=== PATIENT | female | born 1955 | race Caucasian/White ===

== ENCOUNTER 2017-09-05 03:08 | Observation (INO) | payer OTHER ==
[2017-09-05 03:39] VITALS: BMI 29.7
[2017-09-05] MEDS ORDERED: ASPIRIN 325 MG TABLET PO ONE (03:44)
[2017-09-05] MEDS ORDERED: ASPIRIN 325 MG TABLET ONE (03:54)
[2017-09-05 04:16] LABS: BASO % 0.7 % (0-2.0); EOS % 1.4 % (0-4.5); HEMATOCRIT 35.6 % (32.4-45.2); HEMOGLOBIN 11.9 GM/dL (10.7-15.3); LYMPH % 38.2 % (8-40); MCH 28.8 pg (25.7-33.7); MCHC 33.5 g/dl (32.0-36.0); MEAN PLT VOLUME 8.4 fl (7.5-11.1); MONO % 8.9 % (3.8-10.2); NEUT % 50.8 % (42.8-82.8); PLATELET COUNT 317 K/MM3 (134-434); RBC 4.14 M/mm3 (3.60-5.2); RDW 13.7 % (11.6-15.6); WHITE BLOOD COUNT 5.8 K/mm3 (4.0-10.0)
[2017-09-05 04:29] LABS: INR 0.91 (0.82-1.09); PROTHROMBIN TIME (PATIENT) 10.3 SEC (9.7-13.0)
[2017-09-05 04:36] LABS: ALBUMIN 3.3 g/dl (3.4-5.0); ANION GAP 9 (8-16); BILIRUBIN,TOTAL 0.4 mg/dL (0.2-1.0); BLOOD UREA NITROGEN 11 mg/dL (7-18); CALCIUM 9.2 mg/dL (8.5-10.1); CHLORIDE 106 mmol/L (98-107); CO2 28 mmol/L (21-32); CREATININE 0.8 mg/dL (0.55-1.02); GLUCOSE,RANDOM 100 mg/dL (74-106); MAGNESIUM 1.8 mg/dL (1.8-2.4); POTASSIUM 3.8 mmol/L (3.5-5.1); SGOT/AST 18 U/L (15-37); SGPT/ALT 28 U/L (12-78); SODIUM 143 mmol/L (136-145); TOT PROT 6.9 g/dl (6.4-8.2)
[2017-09-05 04:38] LABS: ALK PHOS 81 U/L (45-117)
[2017-09-05] MEDS ORDERED: diphenhydrAMINE HCL 25 MG CAPSULE (FP) PO ONE ×2 (06:22→06:53)
[2017-09-05] MEDS ORDERED: NITROGLYCERIN SUBLINGUAL 1/200 0.3 MG BTL SL ONE (06:22)
--- NOTE | 2017-09-05 06:46 | PDOC ---
Attending Attestation - Resident Resident Name: Olivia Mg - ED Attending Attestation I have performed the following: I have examined & evaluated the patient, The case was reviewed & discussed with the resident, I agree w/resident's findings & plan, Exceptions are as noted - HPI HPI: 09/05/17 07:33 Adal 62 YOF w/ significant pmhx pericardial effusion/pericarditis, HTN, HLD , diabetes, chronic UTI's who presents to the ED with complaints of mid chest pain that began 3am this morning. Patient's daughter is at bedside translating , reporting patient began to experiencing chest ain't that is described as a pressured pain as well as associated symptoms of full body itchiness. She reports itchiness is more prominent on the right side, that gradually increased in intensity over time, prompting her to come into the ED for further evaluation. Denies nausea, vomiting Denies contact with sick individuals, out of state travelling. Denies fevers,chills. Denies any other symptoms. no headache or dizziness, weakness or paresthesias Allergies: None Social history: No smoking. No alcohol. No illicit drugs. Surgical history: Appendectomy,Pericarditis, Cholecystectomy PMD: Dr. Hodge - Physicial Exam PE: 09/05/17 07:32 General: Well appearing, awake and alert, NAD. HEENT: NCAT, PERRL, EOMI, clear conjunctiva, anicteric, moist mucus membranes, clear oropharynx Neck: neck supple, FROM, no JVD, +lateral neck scar Chest: no chest wall tenderness Lungs: CTAB, normal and even respirations, no respiratory distress Heart: RRR, no murmurs, 2+ peripheral pulses throughout, no peripheral edema Abdomen: soft, NTND, no peritoneal signs. Back: nontender, normal inspection and ROM MSK: no edema, NAGEL x4, ROM intact. normal bulk and tone. Neuro: alert, oriented appropriately; no focal neurologic deficits. Skin: warm and well perfused, cap refill <2 sec, normal color - Medical Decision Making 09/05/17 06:43 MDM: Adal 62 YOF w/ significant pmhx pericardial effusion, HTN, HLD, diabetes, chronic UTI's presenting with anterior chest pressure since 3am. + itching on right side of body. Neg Cath and stress 2 years ago. Denies stressors or respiratory/cardiac illnesses. DDx includes ACS, angina, chest pain NOS, costochondritis, GERD, pleurisy, anxiety, esophageal spasm. Low suspicion for pulmonary embolism or dissection. considered pericardial effusion with cardiomegaly on cxr, but no evidence of pericarditis on EKG Chest pain Heart score; vital signs wnl, stable. HEART score 4 which denotes moderate risk of ACS 12-16% MACE at 30 days. Given risk factors including several comorbidities and age EKG sinus rhythm at 51, TWI in anterior leads; flattening in III, no segment derangements, normal intervals. Initial trop neg x1, reassuring but not ruled out with serials and monitoring and possibly provocative testing. Admit to tele/medicine r/o ischemia/ACS, serial trops and EKG/tele monitoring. ASA administered, pain controlled with nitro (CP 4/10), discussion with patient and family at bedside, questions answered. Delinquent Tax Collector Assistant - [facility] , call out made. 09/05/17 07:33 Heart Score/ECG Review - History History: Moderately suspicious - Electrocardiogram EKG: Normal - Age Age: 45-65 - Risk Factors Risk Factors Heart Score: Yes Hx Hypercholesterolemia, Yes Hx Hypertension, Yes Hx Diabetes Based on the list above the patient has:: >/=3 risk factors or Hx atherosclerotic disease - Troponin Troponin: </= normal limit - Score Heart Score - Total: 4
--- NOTE | 2017-09-05 07:18 | PDOC ---
History of Present Illness - General Chief Complaint: Chest Pain Stated Complaint: CHEST PAIN Time Seen by Provider: 09/05/17 04:24 - History of Present Illness Initial Comments: 62 year old female with PMH of HTN, HLD, NIDDM, pericarditis (most recent episode 7 months prior, treated in [facility]) and previous pericardial window for pericardial effusion presenting with chest pain, bilateral leg itching, and bilateral . Describes the chest pain as left sided pressure, non-radiating, non- exertional, and occasionally pleuritic. It did not wake her up out of her sleep but she noticed it when she work up at 4:00 AM this morning. Denies nausea, vomiting, SOB, headache, LOC, lightheadedness, or other symptoms. 09/05/17 07:17 Past History - Past Medical History Allergies/Adverse Reactions: Allergies Allergy/AdvReac Type Severity Reaction Status Date / Time No Known Allergies Allergy Verified 09/05/17 03:40 Home Medications: Ambulatory Orders Aspirin [ASA -] 81 mg PO DAILY 09/11/15 Escitalopram Oxalate [Lexapro -] 20 mg PO DAILY 09/11/15 Hydrochlorothiazide [Hctz -] 12.5 mg PO DAILY 09/11/15 Levothyroxine [Synthroid -] 100 mcg PO DAILY 09/11/15 Loperamide HCl [Imodium -] 2 mg PO BID #14 capsule 09/11/15 Losartan/Hydrochlorothiazide [Losartan-Hctz 50-12.5 mg Tab] 1 each PO DAILY Metformin HCl [Metformin HCl ER] 500 mg PO DAILY 09/11/15 Ondansetron [Zofran Odt -] 4 mg SL TID #21 od.tablet 09/11/15 Rabeprazole Sodium 20 mg PO DAILY 09/11/15 Simvastatin 20 mg PO BID 09/11/15 clonazePAM [Klonopin -] 1 mg PO BID 09/11/15 Cardiac Disorders: Yes (PERICARDIAL EFFUSION) COPD: No Diabetes: Yes Disorders: Yes (CHRONIC UTI'S) HTN: Yes Hypercholesterolemia: Yes Kidney Stones: Yes (W/SURGERY) Thyroid Disease: Yes - Surgical History Appendectomy: Yes Cardiac Surgery: Yes (PERICARDITIS/EFFUSION) Cholecystectomy: Yes - Immunization History Immunization Up to Date: No - Suicide/Smoking/Psychosocial Hx Smoking Status: No Smoking History: Never smoked Have you smoked in the past 12 months: No Number of Cigarettes Smoked Daily: 0 Information on smoking cessation initiated: No Hx Alcohol Use: No Drug/Substance Use Hx: No Substance Use Type: None Hx Substance Use Treatment: No Review of Systems - Review of Systems Constitutional: No: Chills, Diaphoresis HEENTM: No: Eye Pain, Blurred Vision Respiratory: No: Cough, Orthopnea, Shortness of Breath, SOB with Exertion Cardiac (ROS): Yes: Chest Pain. No: Edema, Lightheadedness, Palpitations ABD/GI: No: Diarrhea, Nausea, Vomiting : No: Burning, Dysuria Musculoskeletal: No: Back Pain, Gout Integumentary: No: Bruising, Erythema, Lesions, Lumps Neurological: Yes: Paresthesia, Tingling. No: Headache, Numbness, Weakness *Physical Exam - Vital Signs Last Vital Signs Temp Pulse Resp BP Pulse Ox 98.1 F 86 18 121/79 97 09/05/17 06:04 09/05/17 06:04 09/05/17 06:04 09/05/17 06:04 09/05/17 06:04 ED Treatment Course - LABORATORY CBC & Chemistry Diagram: 09/05/17 03:27 09/05/17 03:27 - ADDITIONAL ORDERS Additional order review: Laboratory Results 09/05/17 09/05/17 03:27 03:27 PT with INR 10.30 INR 0.91 Sodium 143 Potassium 3.8 Chloride 106 Carbon Dioxide 28 Anion Gap 9 BUN 11 Creatinine 0.8 Creat Clearance w eGFR > 60 Random Glucose 100 Calcium 9.2 Magnesium 1.8 Total Bilirubin 0.4 AST 18 ALT 28 Alkaline Phosphatase 81 Troponin I < 0.02 Total Protein 6.9 Albumin 3.3 L 09/05/17 03:27 RBC 4.14 MCV 86.0 MCHC 33.5 RDW 13.7 D MPV 8.4 Neutrophils % 50.8 Lymphocytes % 38.2 Monocytes % 8.9 Eosinophils % 1.4 Basophils % 0.7 - Medications Given in the ED: ED Medications Discontinued Medications Generic Name Dose Route Start Last Admin Trade Name Freq PRN Reason Stop Dose Admin Aspirin 325 mg 09/05/17 03:44 09/05/17 04:03 Asa - PO 09/05/17 03:45 325 mg ONCE ONE Administration Diphenhydramine HCl 25 mg 09/05/17 06:22 09/05/17 06:57 Benadryl - PO 09/05/17 06:23 25 mg ONCE ONE Administration Nitroglycerin 0.3 mg 09/05/17 06:22 09/05/17 06:57 Nitrostat - SL 09/05/17 06:23 0.3 mg ONCE ONE Administration Medical Decision Making - Medical Decision Making 62 year old female with multiple risk factors and heart score of 4 who will be admitted for chest pain with ACS rule out. EKG WNl and first troponin negative. Patient signed out to Dr. Walton of medical team. *DC/Admit/Observation/Transfer Diagnosis at time of Disposition: Chest pain Qualifiers: Chest pain type: unspecified Qualified Code(s): R07.9 - Chest pain, unspecified - Discharge Dispostion Disposition: AGAINST MEDICAL ADVICE Condition at time of disposition: Fair Decision to Admit order Date/Time: Decision to Admit Order Category Date Time Status Decision to Admit to Hospital Routine Admission 09/05/17 06:23 Active - Referrals - Patient Instructions - Post Discharge Activity
--- NOTE | 2017-09-05 07:45 | HP ---
CHIEF COMPLAINT: chest pain PCP: Dr. Hodge HISTORY OF PRESENT ILLNESS: 62 year old female without significant pmhx pericardial effusion/pericarditis, HTN, HLD, diabetes, chronic UTI's who presented to the ED with complaints of non -radiating, anterior chest pressure since 2am last night. Denies any inciting factors. Also reports itching over her entire body that began at 3am. Denies any nausea, vomiting, abdominal pain, shortness of breath, headache. Patient's daughter is translating at bedside and reports that patient has cardiac workup frequently with echos every 6 months with her outpatient literacy coach. She reports having ER course was notable for: (1) trop negative (2) ekg TWI lead anterior leads and inversion in lead III (3) Recent Travel: none PAST MEDICAL HISTORY: pericardial effusion/pericarditis, HTN, HLD, diabetes, chronic UTI's PAST SURGICAL HISTORY: Appendectomy Pericarditis Cholecystectomy Social History: Smoking: former smoker Alcohol: denies alcohol Drugs: drugs Family History: Acute MIs in both parents Allergies No Known Allergies Allergy (Verified 09/05/17 03:40) HOME MEDICATIONS: Home Medications Medication Instructions Recorded Aspirin [ASA -] 81 mg PO DAILY 09/11/15 Escitalopram Oxalate [Lexapro -] 20 mg PO DAILY 09/11/15 Hydrochlorothiazide [Hctz -] 12.5 mg PO DAILY 09/11/15 Levothyroxine [Synthroid -] 100 mcg PO DAILY 09/11/15 Loperamide HCl [Imodium -] 2 mg PO BID #14 capsule 09/11/15 Losartan/Hydrochlorothiazide 1 each PO DAILY 09/11/15 [Losartan-Hctz 50-12.5 mg Tab] Metformin HCl [Metformin HCl ER] 500 mg PO DAILY 09/11/15 Ondansetron [Zofran Odt -] 4 mg SL TID #21 od.tablet 09/11/15 Rabeprazole Sodium 20 mg PO DAILY 09/11/15 Simvastatin 20 mg PO BID 09/11/15 clonazePAM [Klonopin -] 1 mg PO BID 09/11/15 REVIEW OF SYSTEMS CONSTITUTIONAL: Absent: fever, chills, diaphoresis, generalized weakness, malaise, loss of appetite, weight change HEENT: Absent: rhinorrhea, nasal congestion, throat pain, throat swelling, difficulty swallowing, mouth swelling, ear pain, eye pain, visual changes CARDIOVASCULAR: chest pain Absent: syncope, palpitations, irregular heart rate, lightheadedness, peripheral edema RESPIRATORY: Absent: cough, shortness of breath, dyspnea with exertion, orthopnea, wheezing, stridor, hemoptysis GASTROINTESTINAL: Absent: abdominal pain, abdominal distension, nausea, vomiting, diarrhea, constipation, melena, hematochezia GENITOURINARY: Absent: dysuria, frequency, urgency, hesitancy, hematuria, flank pain, genital pain MUSCULOSKELETAL: Absent: myalgia, arthralgia, joint swelling, back pain, neck pain SKIN: Absent: rash, itching, pallor HEMATOLOGIC/IMMUNOLOGIC: Absent: easy bleeding, easy bruising, lymphadenopathy, frequent infections ENDOCRINE: Absent: unexplained weight gain, unexplained weight loss, heat intolerance, cold intolerance NEUROLOGIC: Absent: headache, focal weakness or paresthesias, dizziness, unsteady gait, seizure, mental status changes, bladder or bowel incontinence PSYCHIATRIC: Absent: anxiety, depression, suicidal or homicidal ideation, hallucinations. PHYSICAL EXAMINATION Vital Signs - 24 hr 09/05/17 09/05/17 03:10 06:04 Temperature 98.4 F 98.1 F Pulse Rate 51 L Pulse Rate [ 86 Left Apical] Respiratory 18 18 Rate Blood Pressure 156/64 Blood Pressure 121/79 [Right Arm] O2 Sat by Pulse 98 97 Oximetry (%) GENERAL: A&Ox3, no acute distress EYES: PERRLA, EOMI ENT: Moist mucus membranes NECK: No JVD LUNGS: CTA, no wheezes HEART: bradycardic, no murmurs ABDOMEN: Obese, soft, nontender, BS present MUSCULOSKELETAL: No CVA Tenderness EXTREMITIES: 2+ pulses, no edema. NEUROLOGICAL: Cranial nerves II-XII intact. Laboratory Results - last 24 hr 09/05/17 09/05/17 09/05/17 03:27 03:27 03:27 WBC 5.8 RBC 4.14 Hgb 11.9 Hct 35.6 MCV 86.0 MCH 28.8 MCHC 33.5 RDW 13.7 D Plt Count 317 MPV 8.4 Absolute Neuts (auto) 3.0 Neutrophils % 50.8 Lymphocytes % 38.2 Monocytes % 8.9 Eosinophils % 1.4 Basophils % 0.7 Nucleated RBC % 0 PT with INR 10.30 INR 0.91 Sodium 143 Potassium 3.8 Chloride 106 Carbon Dioxide 28 Anion Gap 9 BUN 11 Creatinine 0.8 Creat Clearance w eGFR > 60 Random Glucose 100 Calcium 9.2 Magnesium 1.8 Total Bilirubin 0.4 AST 18 ALT 28 Alkaline Phosphatase 81 Troponin I < 0.02 Total Protein 6.9 Albumin 3.3 L ASSESSMENT/PLAN: 62 year old female with hx pericardial effusion/pericarditis, HTN, HLD, diabetes , hypothyroidism, chronic UTI's presents for chest pressure and admitted tele obs for r/o acs #Chest Pressure: r/o ACS -initial troponin negative, repeat at 9am -EKG Sinus bradycardia with TWI in anterior lead and T wave flattening in III -repeat EKG -ASA 325 given in ED, continue home dose of 81mg -patient is on simvastatin at home, will put on high intensity statin given cardiac hx and recurrent symptoms (atovastatin 40mg) -echo ordered, due to hx of pericarditis w/ pericardial window - would like to assess structural components of the heart -Dr. Arreguin consult appreciated -cardiac monitoring now -TSH and lipid panel ordered #Hypertension -continue losartan/hydrochlorothiazide #Hyperlipidemia -change simvastatin to atorvastatin 40mg, give a dose now and then HS #Hypothyroidism: -continue synthroid 100mcg PO QD #Diabetes Mellitus -continue metformin 500 daily #Depression/Anxiety: not an acute issue -continue lexapro #FEN -no standing fluids -low NA/diabetic diet -lytes within normal limits, replete as necessary in AM #Prophylaxis -heparin 5000 subq TID #Disposition -admit tele obs Visit type - Emergency Visit Emergency Visit: Yes Care time: The patient presented to the Emergency Department on the above date and was hospitalized for further evaluation of their emergent condition. - New Patient This patient is new to me today: Yes Date on this admission: 09/05/17 - Critical Care Critical Care patient: No Hospitalist Screening - Colonoscopy Questionnaire Colonoscopy Questionnaire: Colonoscopy Questionnaire - Patient: 50 - 75 years old and never had a screening colonoscopy: Unknown History of colon or rectal polyps, or CA: Unknown History of IBD, Crohn's disease or UC: Unknown History of abdominal radiation therapy as a child: Unknown - Relative: 1 with colon or rectal CA, or polyps at age 60 or younger: Unknown Colon or rectal CA diagnosed at age 45 or younger: Unknown Multiple relatives with colon or rectal CA: Unknown - Outcome: Screening Result: Negative Screen
[2017-09-05] MEDS ORDERED: PATIENT'S OWN MEDICATION (NON-FORMULARY) (Simvastatin [Simvastatin] 20 MG) PO SCH (10:00)
[2017-09-05] MEDS ORDERED: LOPERAMIDE HCL 2 MG CAPSULE PO SCH (10:00)
[2017-09-05] MEDS ORDERED: PATIENT'S OWN MEDICATION (NON-FORMULARY) (Rabeprazole Sodium [Rabeprazole Sodium] 20 MG) PO SCH (10:00)
[2017-09-05] MEDS ORDERED: ATORVASTATIN CA 40 MG TABLET (FP) PO SCH (10:00)
[2017-09-05] MEDS ORDERED: HYDROCHLOROTHIAZIDE 12.5 MG CAPSULE (FP) PO SCH (10:00)
[2017-09-05] MEDS ORDERED: LOSARTAN 50MG/HCTZ 12.5MG 1 TAB (FP) PO SCH (10:00)
[2017-09-05] MEDS ORDERED: ASPIRIN 81 MG CHEWABLE TABLETS PO SCH (10:00)
[2017-09-05] MEDS ORDERED: PATIENT'S OWN MEDICATION (NON-FORMULARY) (Metformin Hcl [Metformin Hcl Er] 500 MG) PO SCH (10:00)
[2017-09-05] MEDS ORDERED: ESCITALOPRAM OXALATE 20 MG TABLET (FP) PO SCH (10:00)
[2017-09-05] MEDS ORDERED: clonazePAM 0.5 MG TABLET PO SCH (10:00)
[2017-09-05] MEDS ORDERED: LEVOTHYROXINE NA 100 MCG TABLET (FP) PO SCH (10:00)
[2017-09-05] MEDS: HEPARIN NA (PORCINE) 5,000 UNITS/ML 1ML VIAL SQ SCH ×2 (10:36→18:01)
[2017-09-05] MEDS ORDERED: clonazePAM 0.5 MG TABLET ONE (10:39)
[2017-09-05] MEDS ORDERED: PANTOPRAZOLE 40 MG TABLET (FP) PO SCH (10:46)
--- NOTE | 2017-09-05 12:20 | CONSULT ---
Consult Consult Specialty:: Cardiology (Dr Arreguin) Referred by:: Medicine Reason for Consultation:: Chest pain - History of Present Illness Chief Complaint: Chest pain History of Present Illness: 62 yo female H/o HTN, HPL and DM Provides history of pericarditis "years ago" Followed by Cardiology at [facility] ( unknown name) Now presents with severe chest pain that awoke her at 3AM Pain described as a pressure/tightness and has been present since last night Similar pain to her prior pericarditis presentation Does not take chronic antinflammatory therapy - History Source History Provided By: Patient (Via ecommerce analyst) Limitations to Obtaining History: Poor Historian - Past Medical History Cardio/Vascular: Yes: HTN Endocrine: Yes: Diabetes Mellitus - Alcohol/Substance Use Hx Alcohol Use: No - Smoking History Smoking history: Never smoked Have you smoked in the past 12 months: No Aproximately how many cigarettes per day: 0 Home Medications - Allergies Allergies/Adverse Reactions: Allergies Allergy/AdvReac Type Severity Reaction Status Date / Time No Known Allergies Allergy Verified 09/05/17 03:40 - Home Medications Home Medications: Ambulatory Orders Aspirin [ASA -] 81 mg PO DAILY 09/11/15 Escitalopram Oxalate [Lexapro -] 20 mg PO DAILY 09/11/15 Hydrochlorothiazide [Hctz -] 12.5 mg PO DAILY 09/11/15 Levothyroxine [Synthroid -] 100 mcg PO DAILY 09/11/15 Loperamide HCl [Imodium -] 2 mg PO BID #14 capsule 09/11/15 Losartan/Hydrochlorothiazide [Losartan-Hctz 50-12.5 mg Tab] 1 each PO DAILY Metformin HCl [Metformin HCl ER] 500 mg PO DAILY 09/11/15 Ondansetron [Zofran Odt -] 4 mg SL TID #21 od.tablet 09/11/15 Rabeprazole Sodium 20 mg PO DAILY 09/11/15 Simvastatin 20 mg PO BID 09/11/15 clonazePAM [Klonopin -] 1 mg PO BID 09/11/15 Family Disease History - Family Disease History Family History: Unremarkable Review of Systems - Review of Systems Constitutional: reports: No Symptoms Eyes: reports: No Symptoms HENT: reports: No Symptoms Neck: reports: No Symptoms Cardiovascular: reports: Chest Pain Respiratory: reports: No Symptoms Gastrointestinal: reports: No Symptoms Genitourinary: reports: No Symptoms Physical Exam Vital Signs: Vital Signs Temperature 98.0 F 09/05/17 10:31 Pulse Rate 58 L 09/05/17 10:31 Respiratory Rate 16 09/05/17 10:31 Blood Pressure 110/64 09/05/17 10:31 O2 Sat by Pulse Oximetry (%) 96 09/05/17 10:03 Constitutional: Yes: Well Nourished, No Distress, Calm Eyes: Yes: WNL HENT: Yes: WNL Neck: Yes: WNL Cardiovascular: Yes: WNL, Regular Rate and Rhythm (No rub) Respiratory: Yes: CTA Bilaterally Gastrointestinal: Yes: WNL Musculoskeletal: Yes: WNL Extremities: Yes: WNL Edema: No Labs: CBC, BMP 09/05/17 03:27 09/05/17 03:27 Imaging - Results EKG: Image Reviewed (09/05/17 at 03:43 SB at 41/min with LVH and TWI V1-V3.) Assessment/Plan 62 yo female with HTN, HPL, DM and prior episode of pericarditis now with recurrent chest pain 1) Chest pain -Suspect recurrent pericarditis -Will check hsCRP and ESR -ECG with T-wave inversion in V1-V3 and LVH. Could consider ischemic eval if not responsive to NSAIDS -Echo in AM to assess for pericardial effusion and pericardial thickening -Will give Ibuprofen 800mg PO now and assess response before putting on standing NSAIDS given her h/o gastritis. Will need PPI if goes on standing NSAIDS/[place]. 2) HTN -Well controlled -Continue Losartan/HCTZ 100/12.5 3) HPL -Continue Simva 20 4) DM -Continue Metformin.
[2017-09-05] MEDS ORDERED: IBUPROFEN 400 MG TABLET (FP) PO ONE (12:23)
--- NOTE | 2017-09-05 13:12 | PN ---
Teaching Attending Note Name of Resident: Juan Carlos Borges ATTENDING PHYSICIAN STATEMENT I saw and evaluated the patient. I reviewed the resident's note and discussed the case with the resident. I agree with the resident's findings and plan as documented. SUBJECTIVE: OBJECTIVE: Vital Signs Temperature 98.0 F 09/05/17 10:31 Pulse Rate 58 L 09/05/17 10:31 Respiratory Rate 16 09/05/17 10:31 Blood Pressure 110/64 09/05/17 10:31 O2 Sat by Pulse Oximetry (%) 96 09/05/17 10:03 GENERAL: A&Ox3, no acute distress EYES: PERRLA, EOMI, ENT: MMM NECK: No JVD LUNGS: CTA, no wheezes HEART: bradycardic, no murmurs ABDOMEN: Obese, soft, nontender, BS present EXTREMITIES: 2+ pulses, no edema. NEUROLOGICAL: Cranial nerves II-XII intact. WBC 5.8 K/mm3 (4.0-10.0) 09/05/17 03:27 RBC 4.14 M/mm3 (3.60-5.2) 09/05/17 03:27 Hgb 11.9 GM/dL (10.7-15.3) 09/05/17 03:27 Hct 35.6 % (32.4-45.2) 09/05/17 03:27 MCV 86.0 fl (80-96) 09/05/17 03:27 MCHC 33.5 g/dl (32.0-36.0) 09/05/17 03:27 RDW 13.7 % (11.6-15.6) D 09/05/17 03:27 Plt Count 317 K/MM3 (134-434) 09/05/17 03:27 MPV 8.4 fl (7.5-11.1) 09/05/17 03:27 CMP Sodium 143 mmol/L (136-145) 09/05/17 03:27 Potassium 3.8 mmol/L (3.5-5.1) 09/05/17 03:27 Chloride 106 mmol/L (98-107) 09/05/17 03:27 Carbon Dioxide 28 mmol/L (21-32) 09/05/17 03:27 Anion Gap 9 (8-16) 09/05/17 03:27 BUN 11 mg/dL (7-18) 09/05/17 03:27 Creatinine 0.8 mg/dL (0.55-1.02) 09/05/17 03:27 Creat Clearance w eGFR > 60 (>60) 09/05/17 03:27 Random Glucose 100 mg/dL (74-106) 09/05/17 03:27 Calcium 9.2 mg/dL (8.5-10.1) 09/05/17 03:27 Total Bilirubin 0.4 mg/dL (0.2-1.0) 09/05/17 03:27 AST 18 U/L (15-37) 09/05/17 03:27 ALT 28 U/L (12-78) 09/05/17 03:27 Alkaline Phosphatase 81 U/L (45-117) 09/05/17 03:27 Total Protein 6.9 g/dl (6.4-8.2) 09/05/17 03:27 Albumin 3.3 g/dl (3.4-5.0) L 09/05/17 03:27 CARDIAC ENZYMES Troponin I < 0.02 ng/ml (0.00-0.05) 09/05/17 09:20 Current Medications Generic Name Dose Route Start Last Admin Trade Name Freq PRN Reason Stop Dose Admin Aspirin 81 mg 09/05/17 10:00 09/05/17 10:35 Asa - PO 81 mg DAILY TIANA Administration Atorvastatin Calcium 40 mg 09/05/17 10:00 09/05/17 10:36 Lipitor - PO 40 mg HS TIANA Administration Clonazepam 1 mg 09/05/17 10:00 09/05/17 10:37 Klonopin - PO 1 mg BID TIANA Administration Escitalopram Oxalate 20 mg 09/05/17 10:00 09/05/17 10:36 Lexapro - PO 20 mg DAILY TIANA Administration HCTZ/Losartan Potassium 1 tab 09/05/17 10:00 09/05/17 10:36 Hyzaar - PO 1 tab DAILY TIANA Administration Heparin Sodium (Porcine) 5,000 unit 09/05/17 10:00 09/05/17 10:36 Heparin - SQ 5,000 unit Q8H-IV TIANA Administration Hydrochlorothiazide 12.5 mg 09/05/17 10:00 09/05/17 10:35 Hctz - PO 12.5 mg DAILY TIANA Administration Levothyroxine Sodium 100 mcg 09/05/17 10:00 09/05/17 10:37 Synthroid - PO 100 mcg DAILY TIANA Administration Loperamide HCl 2 mg 09/05/17 10:00 09/05/17 10:36 Imodium - PO 2 mg BID TIANA Administration Metformin HCl 500 mg 09/05/17 10:45 Glucophage Xr - PO ACBK TIANA Pantoprazole Sodium 40 mg 09/05/17 10:46 Protonix - PO DAILY [facility] Home Medications Medication Instructions Recorded Aspirin [ASA -] 81 mg PO DAILY 09/11/15 Escitalopram Oxalate [Lexapro -] 20 mg PO DAILY 09/11/15 Hydrochlorothiazide [Hctz -] 12.5 mg PO DAILY 09/11/15 Levothyroxine [Synthroid -] 100 mcg PO DAILY 09/11/15 Loperamide HCl [Imodium -] 2 mg PO BID #14 capsule 09/11/15 Losartan/Hydrochlorothiazide 1 each PO DAILY 09/11/15 [Losartan-Hctz 50-12.5 mg Tab] Metformin HCl [Metformin HCl ER] 500 mg PO DAILY 09/11/15 Ondansetron [Zofran Odt -] 4 mg SL TID #21 od.tablet 09/11/15 Rabeprazole Sodium 20 mg PO DAILY 09/11/15 Simvastatin 20 mg PO BID 09/11/15 clonazePAM [Klonopin -] 1 mg PO BID 09/11/15 EKG Sinus bradycardia with TWI in anterior lead and T wave flattening in III ASSESSMENT AND PLAN: Patient is a 62 year old female with hx pericardial effusion/pericarditis, HTN, HLD, diabetes, hypothyroidism, chronic UTI's presents for chest pressure and admitted tele obs for r/o acs #Acute Chest Pressure: r/o ACS, 1st trop. negative , repeat EKG, on Aspirin 81mg continue, given 325mg in ED. echo ordered. Cardio consult appreciated. Covering MD . #Hypertension continue losartan #Hyperlipidemia continue with Lipitor #Hypothyroidism: continue synthroid 100mcg #Diabetes Mellitus metformin 500 daily #Depression/Anxiety: continue lexapro DVT Px: heparin 5000 subq TID
--- NOTE | 2017-09-05 14:59 | EKG ---
Test Reason : Blood Pressure : / mmHG Vent. Rate : 049 BPM Atrial Rate : 049 BPM P-R Int : 188 ms QRS Dur : 098 ms QT Int : 458 ms P-R-T Axes : 020 -26 016 degrees QTc Int : 413 ms SINUS BRADYCARDIA RSR' OR QR PATTERN IN V1 SUGGESTS RIGHT VENTRICULAR CONDUCTION DELAY MINIMAL VOLTAGE CRITERIA FOR LVH, MAY BE NORMAL VARIANT BORDERLINE ECG WHEN COMPARED WITH ECG OF 05-SEP-2017 03:43, NO SIGNIFICANT CHANGE WAS FOUND Confirmed by RUBEN MALLOY MD ([id number]) on 09/05/2017 2:59:22 PM Referred By: Elodia DE LOS SANTOS Confirmed By:RUBEN MALLOY MD
--- NOTE | 2017-09-05 15:20 | EKG ---
Test Reason : Blood Pressure : / mmHG Vent. Rate : 051 BPM Atrial Rate : 051 BPM P-R Int : 204 ms QRS Dur : 102 ms QT Int : 440 ms P-R-T Axes : 006 -24 016 degrees QTc Int : 405 ms SINUS BRADYCARDIA MINIMAL VOLTAGE CRITERIA FOR LVH, MAY BE NORMAL VARIANT BORDERLINE ECG WHEN COMPARED WITH ECG OF 15-JUN-2012 19:19, NO SIGNIFICANT CHANGE WAS FOUND Confirmed by GAMA FLORSE, RUBEN ([id number]) on 09/05/2017 3:20:08 PM Referred By: Confirmed By:RUBEN MALLOY MD
[2017-09-05 17:12] VITALS: BP 100/54; TEMP 97.8
[2017-09-05 20:31] VITALS: PULSE 58
--- NOTE | 2017-09-05 22:28 | PDOC ---
*Physical Exam - Vital Signs Last Vital Signs Temp Pulse Resp BP Pulse Ox 97.8 F 58 L 18 100/54 100 09/05/17 17:11 09/05/17 20:30 09/05/17 20:30 09/05/17 17:11 09/05/17 20:30 ED Treatment Course - LABORATORY CBC & Chemistry Diagram: 09/05/17 03:27 09/05/17 03:27 - ADDITIONAL ORDERS Additional order review: 09/05/17 03:27 RBC 4.14 MCV 86.0 MCHC 33.5 RDW 13.7 D MPV 8.4 Neutrophils % 50.8 Lymphocytes % 38.2 Monocytes % 8.9 Eosinophils % 1.4 Basophils % 0.7 - Medications Given in the ED: ED Medications Discontinued Medications Generic Name Dose Route Start Last Admin Trade Name Sethq PRN Reason Stop Dose Admin Aspirin 325 mg 09/05/17 03:44 09/05/17 04:03 Asa - PO 09/05/17 03:45 325 mg ONCE ONE Administration Diphenhydramine HCl 25 mg 09/05/17 06:22 09/05/17 06:57 Benadryl - PO 09/05/17 06:23 25 mg ONCE ONE Administration Ibuprofen 800 mg 09/05/17 12:23 09/05/17 13:32 Motrin - PO 09/05/17 12:24 800 mg ONCE ONE Administration Nitroglycerin 0.3 mg 09/05/17 06:22 09/05/17 06:57 Nitrostat - SL 09/05/17 06:23 0.3 mg ONCE ONE Administration Non-Formulary Medication 500 mg 09/05/17 10:00 09/05/17 10:37 Metformin Hcl [Metformin Hcl Er] PO 500 mg DAILY TIANA Administration Non-Formulary Medication 20 mg 09/05/17 10:00 09/05/17 10:37 Rabeprazole Sodium [Rabeprazole Sodium] PO Not Given DAILY TIANA *DC/Admit/Observation/Transfer Diagnosis at time of Disposition: Chest pain Qualifiers: Chest pain type: unspecified Qualified Code(s): R07.9 - Chest pain, unspecified - Discharge Dispostion Disposition: AGAINST MEDICAL ADVICE Condition at time of disposition: Fair - Referrals - Patient Instructions - Post Discharge Activity
--- NOTE | 2017-09-06 06:40 | HOSP ---
Physical Examination Vital Signs: Vital Signs Temperature 97.8 F 09/05/17 17:11 Pulse Rate 58 L 09/05/17 20:30 Respiratory Rate 18 09/05/17 20:30 Blood Pressure 100/54 09/05/17 17:11 O2 Sat by Pulse Oximetry (%) 100 09/05/17 20:30 Labs: CBC, BMP 09/05/17 03:27 09/05/17 03:27 Hospitalist Encounter Assessment: Was called to see pt because she wished to leave the hospital against medical advise. Risks of leaving were explained to the patient at length. She stated understanding. All questions were answered. Pt was encouraged to return to the ED if anything changed or if she had any new symptoms. Pt agreed. Visit type - Emergency Visit Emergency Visit: Yes ED Registration Date: 09/05/17 Care time: The patient presented to the Emergency Department on the above date and was hospitalized for further evaluation of their emergent condition. - New Patient This patient is new to me today: Yes Date on this admission: 09/06/17 - Critical Care Critical Care patient: No
--- NOTE | 2017-09-06 08:49 | DS ---
Physical Examination Vital Signs: Patient signed against medical advice. Overnight. patient was admitted for chest pain to r/o ACS. Vital Signs Temperature 97.8 F 09/05/17 17:11 Pulse Rate 58 L 09/05/17 20:30 Respiratory Rate 18 09/05/17 20:30 Blood Pressure 100/54 09/05/17 17:11 O2 Sat by Pulse Oximetry (%) 100 09/05/17 20:30 Labs: CBC, BMP 09/05/17 03:27 09/05/17 03:27 Discharge Summary Reason For Visit: CHEST PAIN Condition: Fair - Instructions Referrals: Yves Hodge [Primary Care Provider] - Disposition: AGAINST MEDICAL ADVICE - Home Medications Comprehensive Discharge Medication List: Ambulatory Orders Aspirin [ASA -] 81 mg PO DAILY 09/11/15 Escitalopram Oxalate [Lexapro -] 20 mg PO DAILY 09/11/15 Hydrochlorothiazide [Hctz -] 12.5 mg PO DAILY 09/11/15 Levothyroxine [Synthroid -] 100 mcg PO DAILY 09/11/15 Loperamide HCl [Imodium -] 2 mg PO BID #14 capsule 09/11/15 Losartan/Hydrochlorothiazide [Losartan-Hctz 50-12.5 mg Tab] 1 each PO DAILY Metformin HCl [Metformin HCl ER] 500 mg PO DAILY 09/11/15 Ondansetron [Zofran Odt -] 4 mg SL TID #21 od.tablet 09/11/15 Rabeprazole Sodium 20 mg PO DAILY 09/11/15 Simvastatin 20 mg PO BID 09/11/15 clonazePAM [Klonopin -] 1 mg PO BID 09/11/15 This patient is new to me today: No Emergency Visit: Yes ED Registration Date: 09/05/17 Care time: The patient presented to the Emergency Department on the above date and was hospitalized for further evaluation of their emergent condition. Critical Care patient: No - Discharge Referral [facility]erred [facility] No
== END 2017-09-05 22:28 | disposition left against medical advice (07) ==
LOC: JER 03:08 → JERBED 06:23
PROVIDERS: ADMIT Internal Medicine; ATTEND Internal Medicine
PROC: 3E013GC Introduction of Other Therapeutic Substance into Subcutaneous Tissue, Percutaneous Approach (ICD-10-PCS; principal; 2017-09-05)
DX: R07.89 Other chest pain (principal); I10 Essential (primary) hypertension; E78.5 Hyperlipidemia, unspecified; E11.9 Type 2 diabetes mellitus without complications; E03.9 Hypothyroidism, unspecified; F41.8 Other specified anxiety disorders; Z87.440 Personal history of urinary (tract) infections; Z87.891 Personal history of nicotine dependence
CPT/HCPCS: 36415; 71046-TC-FY; 80053; 80061; 82550; 83721; 83735; 84443; 84484; 85025; 85610; 85651; 86141; 93005; 93010; 96372; 99284-25; G0378; J1644